=== PATIENT | female | born 1980 | race African-American/Black ===

== ENCOUNTER 2017-10-18 11:19 | Emergency (ER) | payer OTHER ==
[2017-10-18 11:38] LABS: URINE HCG POC HCG NEGATIVE (Negative)
[2017-10-18 11:43] LABS: BILIRUBIN,URINE NEGATIVE (NEG); CLARITY,URINE CLEAR; COLOR,URINE YELLOW; GLUCOSE,URINE NEGATIVE (NEG); NITRITE,URINE NEGATIVE (NEG); PH,URINE 6.5; PROTEIN,URINE NEGATIVE (NEG-TRACE)
[2017-10-18] MEDS: LIDO:MAALOX 1:1 20 ML SINGLE DOSE. PO (11:45)
[2017-10-18 12:05] LABS: ADD MAN DIFF? NO
[2017-10-18 12:07] LABS: BACTERIA,URINE 0 /HPF (0-FEW); RBC,URINE 0 /HPF (0-2); SQUAMOUS EPITHELIAL CELL,UR FEW /LPF; WBC,URINE 0 /HPF (0-4)
[2017-10-18 12:08] LABS: BASO # 0.1 x10^3/uL (0.0-0.2); BASO % 1 % (0-3); EOS # 0.1 x10^3/uL (0.0-0.7); EOS % 2 % (0-3); HEMATOCRIT 40.7 % (36.0-47.0); HEMOGLOBIN 14.1 g/dL (12.0-15.5); LYMPH % 33 % (24-48); MEAN CORPUSCULAR HEMOGLOBIN 30 pg (25-35); MEAN CORPUSCULAR HGB CONC 35 g/dL (31-37); MEAN CORPUSCULAR VOLUME 87 fL (79-100); MONO # 0.7 x10^3/uL (0.0-1.1); MONO % 11 % (0-9); NEUT # 3.3 x10^3uL (1.8-7.7); NEUT % 53 % (31-73); PLATELET COUNT 339 x10^3/uL (140-400); RED CELL DISTRIBUTION WIDTH 13.4 % (11.5-14.5); WHITE BLOOD COUNT 6.2 x10^3/uL (4.0-11.0)
[2017-10-18 12:22] LABS: ANION GAP 10 (6-14); BLOOD UREA NITROGEN 11 mg/dL (7-20); BUN/CREATININE RATIO 11 (6-20); CALCIUM 9.1 mg/dL (8.5-10.1); CARBON DIOXIDE 27 mmol/L (21-32); CHLORIDE 104 mmol/L (98-107); GFR 75.5; GLUCOSE 90 mg/dL (70-99); POTASSIUM 4.2 mmol/L (3.5-5.1); SODIUM 141 mmol/L (136-145)
[2017-10-18 12:28] LABS: ALBUMIN 3.8 g/dL (3.4-5.0); ALK PHOS 83 U/L (46-116); ALT (SGPT) 25 U/L (14-59); AST (SGOT) 24 U/L (15-37); TOTAL BILIRUBIN 0.5 mg/dL (0.2-1.0); TOTAL PROTEIN 7.8 g/dL (6.4-8.2)
[2017-10-18] MEDS: IOHEXOL 300 MG/ML 100ML VIAL. IV (12:54)
[2017-10-18] MEDS: FAMOTIDINE 20 MG TABLET. PO (13:29)
== END 2017-10-18 14:04 | disposition home or self-care (01) ==
LOC: ER 11:19
DX: R10.12 Left upper quadrant pain (principal); R10.84 Generalized abdominal pain; I10 Essential (primary) hypertension; Z90.49 Acquired absence of other specified parts of digestive tract; Z98.51 Tubal ligation status
CPT/HCPCS: 36415; 74177; 80053; 81001; 81025; 85025; 99285-25; Q9967

== ENCOUNTER → 2019-07-28 | Outpatient (CLI) | payer BC ==
[2017-10-18 14:01] VITALS: BP 132/90
[~2019-07-28] MED LIST: CONTRAST GIVEN. MC PRN; IOHEXOL 350 MG/ML 100 ML VIAL. IV ONE
--- NOTE | 2019-07-28 13:31 | RAD ---
CTA OF THE CHEST WITH AND WITHOUT CONTRAST Clinical indications: Chest pain with deep breath. Possible pulmonary embolism. Technique: Noncontrast axial localizer was performed. After IV infusion of 100 cc of Optiray 350, helical CT scanning of the chest was performed using the CT pulmonary embolism protocol. A coronal MIP reconstruction was generated. PQRS compliance Statement One or more of the following individualized dose reduction techniques were utilized for this study: 1. Automated exposure control 2. Adjustment of the mA and/or kV according to patient size 3. Use of iterative reconstruction technique Comparison: No previous chest CT available. Findings: No pulmonary embolism is evident. No focal aneurysmal dilatation or dissection of the thoracic aorta is seen. The heart size is mildly enlarged. No pericardial effusion is seen. No enlarged thoracic lymphadenopathy is evident. No adrenal mass is evident. Proximal bronchial tree is patent. No lung mass or lung infiltrate or pleural effusion or pneumothorax is seen. No lytic process is seen. IMPRESSION: No pulmonary embolism. No acute lung infiltrate. Mild cardiomegaly. Electronically signed by: Diony Koehler MD (07/28/2019 1:29 PM) [id number]
== END ==
LOC: CT 12:27
PROVIDERS: ATTEND Family Medicine
DX: I51.7 Cardiomegaly (principal)
CPT/HCPCS: 71275; Q9967